=== PATIENT | male | born 2000 | race Two or more races ===

== ENCOUNTER 2022-09-16 18:54 | Emergency (ER) | payer OTHER ==
[~2022-09-16] VITALS: Ht 175.3 cm; Wt 81.8 kg
[2022-09-16 18:59] VITALS: BP 160/82
== END 2022-09-17 01:30 | disposition home or self-care (01) ==
LOC: ER 18:54
DX: M54.50 Low back pain, unspecified (principal); X50.0XXA Overexertion from strenuous movement or load, initial encounter; Y93.89 Activity, other specified; Y92.69 Other specified industrial and construction area as the place of occurrence of the external cause; Y99.8 Other external cause status